=== PATIENT | female | born 1950 | race Two or more races ===

== ENCOUNTER 2023-04-27 14:44 | Inpatient (IN) | payer OTHER ==
[~2023-04-27] VITALS: Ht 157.5 cm; Wt 17236.5 kg
[~2023-04-27 14:44] MED LIST: ALBUTEROL2.5 MG/3 M IH; AVAPRO300 MG PO; BUDEO.25 IH; CARDURA8 MG PO; CEFADROXIL500 MG PO; HUMULIN 70/30; NEUROTIN; NORVASC5 MG PO; PERCOCET 5/321 UDTAB PO; PREVASTATIN; SIMBICORT; SINGULAIR10 MG PO; SYNTHROID175 MCG PO; XARELTO10 MG PO
--- NOTE | 2023-04-27 15:07 | NUR ---
SE RECIBE PTE ALERTA Y ORIENTADA X3 EN AMBULANCIA, PTE REFIERE VENIR POR DIFICULTAD RESPIRATORIA, PTE SE OBSERVA CON NONREBREATHER MASK AL 100% COLOCADA POR PERSONAL PARAMEDICO. SE MIDEN S/V A PTE, SE REALIZA EKG Y SE REALIZA DXT. PTE CON DXT EN 66MG/DL. PTE SE COLOCA CYN Y SE CONECTA A MONITOR CARDIACO CON OXIMETRIA CONTINUA. SE NOTIFICAN ABGS A PERSONAL DE TERAPIA RESPIRATORIA. SE COLOCA H/L LEROY DE EDEMA Y SE ADMINISTRA HIPERTONICA IV PUSH A PTE. PTE SE CONTINUA MONITORIANDO POR CAMBIOS.
--- NOTE | 2023-04-27 15:18 | NUR ---
SE EDCUA A PTE SOBRE TX MEDICO, SE MICHELLE MUESTRAS DE LABORATORIO UTILIZANDO MEDIDAS ASEPTICAS. SE COLOCA H/L X2 LIBRES DE EDEMA. SE ADMINISTRA VIJAY DE HIPERTONICA 25G. SE NOTIFICA RX, ABGS Y TERAPIAS PENDIENTES.
--- NOTE | 2023-04-27 20:08 | NUR ---
SE ORIENTA A PTE SOBRE TX MEDICO, REFIERE COMPRENDER. SE INSERTA SONDA URINARIA BAJO MEDIDAS ESTERILES. SE COLECTA MUESTRA DE U/A Y U/C.
--- NOTE | 2023-04-27 20:57 | NUR ---
SE RECIBE PTE ALERTA Y ORIENTADA X3 LA MISMA CONECTADA A OXIMETRIA DE PULSO, CON FOLLEY DRENANDO A GRAVEDAD LIQUIDO COLOR AMARILLO, CANALIZACIONES EN BRAZO DERECHO E SHAWANDA #20, PACIENTE CON ABDOMEN DEPRESIBLE AL TACTO Y PERISTARSIS PRESENTE, SE OBSERVAN EXTREMIDADES SUPERIORES LIBRES DE EDEMAS Y ERITEMAS, EXTREMIDADES INFERIORES CON EDEMA Y ERRITEMA Y PACIENTE REFIERE DOLOR EN AMBAS PIERNAS. SE CONECTA A MONITOR CARDIACO Y OXIMETRIA DE PULSO Y SE ACOMODA PACIENTE EN CAMA BRINDANDO COMODIDAD. SE EDUCA A LA MISMA Y A FAMILIAR SOBRE PROTOCOLO DE ESTAR EN AREA DE CHEST PAIN.
--- NOTE | 2023-04-27 21:28 | NUR ---
PACIENTE REFIERE DOLOR INTENSO, SE LE REFIERE A DOCTOR PEZZOTTI EL MISMO ORDENA MEDICAMENTO PARA EL DOLOR IM, SE LE COLOCA EL MISMO A PTE LA MISMA NO PRESENTA REACCION ADVERSA AL MOMENTO. SE MANTIENE BAJO OBSERVACION POR CUALQUIER CAMBIO SIGNIFICATIVO.
--- NOTE | 2023-04-27 22:51 | NUR ---
SE ADMINISTRA MEDICAMENTO OMER ORDEN MEDICA LA MISMA NO PRESENTA REACCION ADVSERA A LA MISMA, SE RENETTA BAJO OBSERVACION PREPARADA PARA PROXIMO TURNO.
[2023-04-28] MEDS ORDERED: OMEPRAZOLE20 MG (11:24)
[2023-04-28] MEDS ORDERED: HUMULIN 70100 UNIT/2 (11:24)
[2023-04-28] MEDS ORDERED: PRAVASTATIN SOD20 MG (11:24)
[2023-04-28] MEDS ORDERED: HYDROCHLOROTHIA25 MG (11:24)
[2023-04-28] MEDS ORDERED: GABAPENTIN600 MG (11:24)
== END 2023-05-20 06:41 | disposition expired | DRG 189 ==
LOC: ER 14:44 → MEDI 23:07 → ICU 23:07 → SEC-K 04-28 03:59 → MEDI 04-29 16:01 → ICU 05-04 15:32
PROVIDERS: Internal Medicine; Internal Medicine Nephrology; ADMIT Internal Medicine; ATTEND Internal Medicine
PROC: BW24ZZZ Computerized Tomography (CT Scan) of Chest and Abdomen (ICD-10-PCS; principal; 2023-04-27)
PROC: B24BZZZ Ultrasonography of Heart with Aorta (ICD-10-PCS; 2023-04-27)
PROC: 4A12X4Z Monitoring of Cardiac Electrical Activity, External Approach (ICD-10-PCS; 2023-04-29)
PROC: 02HV33Z Insertion of Infusion Device into Superior Vena Cava, Percutaneous Approach (ICD-10-PCS; 2023-04-30)
PROC: 30233N1 Transfusion of Nonautologous Red Blood Cells into Peripheral Vein, Percutaneous Approach (ICD-10-PCS; 2023-04-30)
PROC: BW24ZZZ Computerized Tomography (CT Scan) of Chest and Abdomen (ICD-10-PCS; 2023-05-13)
DX: J96.01 Acute respiratory failure with hypoxia (principal); J15.8 Pneumonia due to other specified bacteria; I50.33 Acute on chronic diastolic (congestive) heart failure; I13.0 Hypertensive heart and chronic kidney disease with heart failure and stage 1 through stage 4 chronic kidney disease, or unspecified chronic kidney disease; N17.9 Acute kidney failure, unspecified; J44.1 Chronic obstructive pulmonary disease with (acute) exacerbation; E66.2 Morbid (severe) obesity with alveolar hypoventilation; Z68.44 Body mass index [BMI] 60.0-69.9, adult; J45.901 Unspecified asthma with (acute) exacerbation; I31.39 Other pericardial effusion (noninflammatory); J96.02 Acute respiratory failure with hypercapnia; E03.9 Hypothyroidism, unspecified; E11.22 Type 2 diabetes mellitus with diabetic chronic kidney disease; D63.1 Anemia in chronic kidney disease; Z99.81 Dependence on supplemental oxygen; N18.2 Chronic kidney disease, stage 2 (mild); Z20.822 Contact with and (suspected) exposure to COVID-19; I48.91 Unspecified atrial fibrillation; E11.65 Type 2 diabetes mellitus with hyperglycemia; Z79.4 Long term (current) use of insulin